=== PATIENT | male | born 1955 | race Caucasian/White ===

== ENCOUNTER 2021-02-10 18:05 | Observation (INO) ==
[2021-02-10] MEDS ORDERED: Naloxone 0.4 MG/ML INJ IVP PRN (20:02)
[2021-02-10] MEDS ORDERED: Acetaminophen 325 MG TABLET PO PRN (20:02)
[2021-02-10] MEDS ORDERED: Ondansetron 4 MG/2 ML VIAL IVP PRN (20:02)
[2021-02-10 20:43] LABS: Immature Granulocytes % 0.4 % (0-4); Red Cell Distribution Width 11.9 % (11.5-14.5)
[2021-02-10 21:01] LABS: Alanine Aminotransferase 25 Units/L (7-52); Albumin 4.4 g/dL (3.5-5.7); Albumin/Globulin Ratio 1.6 (1.1-2.2); Alkaline Phosphatase 78 Units/L (34-104); Aspartate Amino Transferase 18 Units/L (13-39); BUN/Creatinine Ratio 27 (6-26); Blood Urea Nitrogen 33 mg/dL (8-23); Calcium 9.8 mg/dL (8.6-10.3); Carbon Dioxide 26 mEq/L (23-29); Chloride 92 mEq/L (98-107); Globulin 2.7 g/dL (2.4-3.5); Glucose 380 mg/dL (70-105); Osmolality,Calculated 293 (280-300); Potassium 3.2 mEq/L (3.5-5.1); Sodium 130 mEq/L (136-145); Total Protein 7.1 g/dL (6.4-8.9); eGFR For African Americans > 60 (> 60); eGFR For Non-African Americans 59 (> 60)
[2021-02-10 21:09] LABS: Troponin I < 0.03 ng/mL (< 0.04)
[2021-02-10] MEDS ORDERED: Ipratropium/Albuterol Neb 3 ML IH PRN (21:13)
[2021-02-10] MEDS ORDERED: Dextrose Gel 15 GM/37.5 ML TUBE PO PRN ×2 (21:16)
[2021-02-10] MEDS ORDERED: D5% in Water 1,000 ML IVC PRN (21:16)
[2021-02-10] MEDS ORDERED: *HR* Dextrose 50 % in Water (Vial) 50 ML VIAL IVP PRN (21:16)
[2021-02-10 21:18] LABS: Basophils # 0.1 K/mcL (0.0-0.2); Basophils % 0.4 %; Eosinophils # 0.2 K/mcL (0.0-0.6); Eosinophils % 1.4 %; Hematocrit 44.9 % (37.5-50.1); Hemoglobin 16.6 g/dL (12.9-16.9); Lymphocytes % 24.5 %; Mean Corpuscular Volume 86.7 fL (83.0-100.0); Mean Platelet Volume 9.8 fL (9.4-12.4); Monocytes # 0.9 K/mcL (0.0-1.3); Monocytes % 7.5 %; Platelet Count 267 K/mcL (140-400); Red Blood Count 5.18 M/mcL (4.19-5.50); Segmented Neutrophils % 65.8 %; White Blood Count 12.1 K/mcL (4.3-11.1)
[2021-02-10] MEDS: Insulin LISPRO 300 UNITS/3 ML VIAL SUBQ SCH (21:30)
[2021-02-10 21:36] LABS: Bilirubin,Urine Negative (Negative); Blood,Urine Negative (Negative); Clarity,Urine Clear (Clear); Color,Urine Light-Yellow (Yellow); Glucose,Urine (UA) >=1000 mg/dL (Normal); Ketones,Urine 10 mg/dL (Negative); Leukocyte Esterase,Urine Negative (Negative); Mucus,Urine Few per lpf (None-Few); Nitrite,Urine Negative (Negative); PH,Urine 5.5 pH Units (5.0-8.0); Protein,Urine Trace mg/dL (Neg-Trace); RBC,Urine 0-3 per hpf (0-3); Specific Gravity,Urine 1.029 (1.010-1.025); Urobilinogen,Urine Normal (Normal); WBC,Urine 0-3 per hpf (0-3)
[2021-02-10 22:07] LABS: Estimated Average Glucose 338 mg/dl; Hemoglobin A1C 13.4 %
[2021-02-11] MEDS: Doxycycline 100 MG in 0.9 % Sodium Chloride Mini Bag 100 ML IVPB SCH ×2 (06:31→17:43)
[2021-02-11 06:39] LABS: Hematocrit 43.2 % (37.5-50.1); Hemoglobin 15.9 g/dL (12.9-16.9); Mean Corpuscular HGB Conc 36.8 g/dL (31.6-35.5); Mean Corpuscular Hemoglobin 32.1 pg (28.0-33.3); Mean Corpuscular Volume 87.1 fL (83.0-100.0); Mean Platelet Volume 9.7 fL (9.4-12.4); Platelet Count 246 K/mcL (140-400); Red Blood Count 4.96 M/mcL (4.19-5.50); White Blood Count 12.2 K/mcL (4.3-11.1)
[2021-02-11 06:50] LABS: INR 1.1; Prothrombin Time 12.2 Seconds (9.4-12.1)
[2021-02-11 07:04] LABS: BUN/Creatinine Ratio 28 (6-26); Blood Urea Nitrogen 31 mg/dL (8-23); Carbon Dioxide 26 mEq/L (23-29); Chloride 95 mEq/L (98-107); Glucose 241 mg/dL (70-105); Magnesium 1.9 mg/dL (1.6-2.6); Osmolality,Calculated 290 (280-300); Potassium 3.6 mEq/L (3.5-5.1); Sodium 133 mEq/L (136-145); eGFR For African Americans > 60 (> 60); eGFR For Non-African Americans > 60 (> 60)
[2021-02-11] MEDS: Insulin LISPRO 300 UNITS/3 ML VIAL SUBQ SCH ×4 (09:27→20:55)
[2021-02-11] MEDS: *HR* Enoxaparin 40 MG/0.4 ML SYRINGE SQ SCH (09:27)
[2021-02-11 10:09] LABS: Calcium 9.3 mg/dL (8.6-10.3)
[2021-02-11] MEDS ORDERED: *HR* Metformin 850 MG TABLET PO SCH (17:00)
[2021-02-11] MEDS: Nicotine 21 MG PATCH.TD24 TD SCH (20:55)
[2021-02-12 03:28] LABS: BUN/Creatinine Ratio 28 (6-26); Blood Urea Nitrogen 28 mg/dL (8-23); Carbon Dioxide 25 mEq/L (23-29); Chloride 95 mEq/L (98-107); Glucose 247 mg/dL (70-105); Magnesium 1.8 mg/dL (1.6-2.6); Osmolality,Calculated 288 (280-300); Potassium 2.9 mEq/L (3.5-5.1); Sodium 132 mEq/L (136-145); eGFR For African Americans > 60 (> 60); eGFR For Non-African Americans > 60 (> 60)
[2021-02-12] MEDS: Doxycycline 100 MG in 0.9 % Sodium Chloride Mini Bag 100 ML IVPB SCH ×2 (06:07→17:13)
[2021-02-12] MEDS ORDERED: Potassium Effervescent 25 MEQ TABLET.EFF PO ONE (07:48)
[2021-02-12] MEDS ORDERED: Insulin DETEMIR 100 UNIT/ML X5UNITS SUBQ ONE (07:56)
[2021-02-12] MEDS: *HR* Enoxaparin 40 MG/0.4 ML SYRINGE SQ SCH (09:04)
[2021-02-12] MEDS: Insulin LISPRO 300 UNITS/3 ML VIAL SUBQ SCH ×4 (09:04→21:38)
[2021-02-12] MEDS: hydroCHLOROthiazide 25 MG TABLET PO SCH (09:05)
[2021-02-12] MEDS: *HR* Metformin 500 MG TABLET PO SCH ×2 (09:06→17:20)
[2021-02-12 09:36] LABS: Basophils # 0.1 K/mcL (0.0-0.2); Basophils % 0.8 %; Eosinophils # 0.2 K/mcL (0.0-0.6); Eosinophils % 1.8 %; Hematocrit 44.3 % (37.5-50.1); Hemoglobin 16.3 g/dL (12.9-16.9); Immature Granulocytes % 0.3 % (0-4); Lymphocytes # 3.5 K/mcL (0.6-4.6); Lymphocytes % 32.6 %; Mean Corpuscular HGB Conc 36.8 g/dL (31.6-35.5); Mean Corpuscular Volume 88.1 fL (83.0-100.0); Mean Platelet Volume 10.3 fL (9.4-12.4); Monocytes # 0.9 K/mcL (0.0-1.3); Monocytes % 8.1 %; Platelet Count 252 K/mcL (140-400); Red Blood Count 5.03 M/mcL (4.19-5.50); Segmented Neutrophils % 56.4 %; White Blood Count 10.7 K/mcL (4.3-11.1)
[2021-02-12] MEDS ORDERED: Potassium Chloride 40 MEQ, Lidocaine 1% 2 ML in 0.9 % Sodium Chloride 500 ML IVPB ONE (16:34)
[2021-02-12] MEDS: Nicotine 21 MG PATCH.TD24 TD SCH (21:38)
[2021-02-13] MEDS: Doxycycline 100 MG in 0.9 % Sodium Chloride Mini Bag 100 ML IVPB SCH (06:12)
[2021-02-13] MEDS: hydroCHLOROthiazide 25 MG TABLET PO SCH (09:01)
[2021-02-13] MEDS: *HR* Enoxaparin 40 MG/0.4 ML SYRINGE SQ SCH (09:01)
[2021-02-13] MEDS: Insulin LISPRO 300 UNITS/3 ML VIAL SUBQ SCH ×2 (09:01→12:48)
[2021-02-13] MEDS: *HR* Metformin 500 MG TABLET PO SCH (09:02)
[2021-02-13 09:11] VITALS: BP 130/76; PULSE 79; TEMP 98; O2SAT 93
[2021-02-13 09:12] LABS: BUN/Creatinine Ratio 23 (6-26); Blood Urea Nitrogen 21 mg/dL (8-23); Calcium 8.6 mg/dL (8.6-10.3); Carbon Dioxide 23 mEq/L (23-29); Chloride 100 mEq/L (98-107); Glucose 237 mg/dL (70-105); Osmolality,Calculated 285 (280-300); Potassium 3.6 mEq/L (3.5-5.1); Sodium 132 mEq/L (136-145); eGFR For African Americans > 60 (> 60); eGFR For Non-African Americans > 60 (> 60)
== END 2021-02-13 17:11 | disposition home or self-care (01) ==
LOC: 3ANU → SUATTDRO 18:51
PROVIDERS: ADMIT Internal Medicine; ATTEND Hospitalist